=== PATIENT | female | born 1985 | race Caucasian/White ===

== ENCOUNTER → 2016-09-13 | Outpatient (CLI) | payer MEDICAID ==
--- NOTE | 2016-09-13 16:39 | REP ---
Obstetric sonography: History: Supervision of followup anatomy. Comparison study: 08/03/2016. Findings: Scanning through the gravid uterus demonstrates a viable single intrauterine gestation in a cephalic lie. motion is observed and heart rate is recorded at 144 beats per minute. An anterior placenta is seen grade 0 without evidence of previa or abruption. Amniotic fluid is subjectively normal. Closed cervical length is 4.0 cm. No extrauterine abnormality is observed. There has been appropriate interval growth. No anomaly is seen. The following anatomic structures are identified and felt to be sonographically unremarkable today: cranium, choroid plexus, cavum, cerebellum posterior fossa, face and profile, lungs, four-chamber heart with left and right ventricular outflow tract views, diaphragm, left-sided stomach, abdominal wall cord insertion, three-vessel umbilical cord, kidneys and bladder, spine, upper and lower extremities. BPD 6.8 cm = 27 weeks 3 days Head circumference 23.9 cm = 26 weeks 0 days Abdominal circumference 22.0 cm = 26 weeks 3 days Femur length 4.7 cm = 25 weeks 4 days Humeral length 4.5 cm = 26 weeks 5 days Cerebellar diameter 3.0 cm = 26 weeks 0 days HC/AC ratio normal 1.09, cephalic index normal 0.88 estimated weight 896 grams 1 pound 15 ounces 55th percentile for 25 weeks 5 days. IMPRESSION: Viable single intrauterine gestation at 25 weeks 6 days by today's composite sonographic criteria. Expected gestational age estimate based on prior sonography is 25 weeks 5 days. PATRICK by prior sonography 12/22/2016. No anomaly is seen. anatomic survey is felt to be complete. Signed by Ulysses Kent MD 09/14/2016 07:59 A
== END ==
LOC: M SMT 12:44
PROVIDERS: ATTEND Specialist
DX: Z34.82 Encounter for supervision of other normal pregnancy, second trimester (principal)

== ENCOUNTER → 2016-09-30 | Outpatient (CLI) | payer MEDICAID ==
[2016-09-30 13:08] LABS: BASO % 0.2 % (0.0-1.0); EOS # 0.1 K/mm3 (0.0-0.50); EOS % 1.3 % (0.0-3.0); LARGE UNSTAINED CELL # 0.1 K/mm3 (0.0-0.4); LARGE UNSTAINED CELL % 1.3 % (0.0-4.0); LYMPH # 2.3 K/mm3 (1.5-6.5); LYMPH % 26.9 % (24.0-44.0); MEAN CORPUSCULAR HEMOGLOBIN 31.7 pg (27.0-33.0); MEAN CORPUSCULAR VOLUME 96.3 fl (80.0-96.0); MONO # 0.4 K/mm3 (0.0-0.8); MONO % 4.7 % (0.0-5.0); NEUTROPHILS # 5.5 K/mm3 (1.8-7.7); NEUTROPHILS % 65.6 % (36.0-66.0); PLATELET COUNT, AUTOMATED 185 k/mm3 (150-450); RED CELL DISTRIBUTION WIDTH 12.3 % (11.5-14.5); WHITE BLOOD COUNT 8.4 K/mm3 (4.0-10.0)
== END ==
LOC: M SMT 10:29
PROVIDERS: ATTEND Specialist
DX: Z34.82 Encounter for supervision of other normal pregnancy, second trimester (principal)

== ENCOUNTER → 2016-11-24 | Outpatient (REF) | payer OTHER, MEDICAID | LOC: M LAB REF 17:01 | PROVIDERS: ATTEND Obstetrics & Gynecology | DX: Z34.83 Encounter for supervision of other normal pregnancy, third trimester (principal) ==

== ENCOUNTER 2016-12-17 17:51 | Inpatient (IN) | payer MEDICAID, OTHER ==
[~2016-12-17] VITALS: Ht 162.6 cm; Wt 85.0 kg
[2016-12-17] VITALS (19 sets, daily range): BP systolic 101–136; BP diastolic 58–103
[2016-12-17] MEDS ORDERED: PRENTAB9 PO (18:15)
[2016-12-17] MEDS ORDERED: LR 1,000 ML IV SCH (20:44)
[2016-12-17] MEDS ORDERED: LACTATED RINGER'S 1000 ML IV STA (20:44)
[2016-12-17] MEDS ORDERED: PROMETHAZINE INJ 25 MG/ML VIAL (J2550) IV ONE (20:45)
[2016-12-17] MEDS ORDERED: BUTORPHANOL 2 MG/ML INJ (J0595) IV ONE (20:45)
[2016-12-17] MEDS ORDERED: OXYTOCIN DRIP 30 UNITS in APPROPRIATE DILUENT 1 EA IV SCH (20:45)
[2016-12-17] MEDS ORDERED: FENTANYL 2MCG/ML ROPIVACAINE 0.2% IN 0.9% NACL 200ML IVBAG As Ordered ONE (21:19)
[2016-12-17 21:27] LABS: MEAN CORPUSCULAR HEMOGLOBIN 31.5 pg (27.0-33.0); MEAN CORPUSCULAR HGB CONC 33.7 g/dl (32.0-36.5); MEAN CORPUSCULAR VOLUME 93.3 fl (80.0-96.0); RED CELL DISTRIBUTION WIDTH 12.6 % (11.5-14.5); WHITE BLOOD COUNT 13.8 K/mm3 (4.0-10.0)
[2016-12-17] MEDS ORDERED: LACTATED RINGER'S 1000 ML IV PRN (22:30)
[2016-12-17] MEDS ORDERED: EPIDURAL/PCA KEYS XX PRN (22:30)
[2016-12-17] MEDS ORDERED: REFRIGERATOR IV KEYS XX PRN (22:30)
[2016-12-17] MEDS ORDERED: FENTANYL/ROPIVACAINE/NACL BAG 200 ML EPIDURAL SCH (22:30)
[2016-12-17] MEDS ORDERED: diphenhydrAMINE INJ 50MG/ML VIAL (J1200) IV PRN (22:30)
[2016-12-17] MEDS ORDERED: NALOXONE INJ 0.4 MG/1 ML VIAL (J2310) IV PRN (22:30)
[2016-12-17] MEDS ORDERED: EPIDURAL COMMENT XX SCH (22:30)
[2016-12-17] MEDS ORDERED: ONDANSETRON 4MG/2ML VIAL (J2405) IV PRN (22:30)
[2016-12-17] MEDS ORDERED: ePHEDrine SULFATE 25 MG/5 ML(5MG/ML) SYRINGE IV PRN (22:30)
[2016-12-18] VITALS (25 sets, daily range): BP systolic 87–140; BP diastolic 51–98
[2016-12-18] MEDS: LR 1,000 ML IV SCH ×2 (09:55→17:55)
[2016-12-18] MEDS ORDERED: OXYTOCIN DRIP 30 UNITS in APPROPRIATE DILUENT 1 EA IV SCH (09:55)
[2016-12-18] MEDS ORDERED: ONDANSETRON 4MG/2ML VIAL (J2405) IV PRN (10:00)
[2016-12-18] MEDS ORDERED: ACETAMINOPHEN 500 MG TAB PO PRN (10:00)
[2016-12-18] MEDS ORDERED: METHYLERGONOVINE MALEATE 0.2 MG TAB PO PRN (10:00)
[2016-12-18] MEDS ORDERED: MEASLES,MUMPS,RUBELLA VACCINE INJ (MMR-II) (90707) SC SCH (10:00)
[2016-12-18] MEDS ORDERED: PROMETHAZINE 25 MG TAB PO PRN (10:00)
[2016-12-18] MEDS ORDERED: RHOGAM 300 MCG (1500 IU) INJ (J2790) IM SCH (10:00)
[2016-12-18] MEDS ORDERED: DIBUCAINE 1% OINTMENT 30GM TOP PRN (10:00)
[2016-12-18] MEDS: IBUPROFEN 800 MG TAB PO PRN ×2 (10:41→20:11)
[2016-12-18] MEDS: DOCUSATE SODIUM 100 MG CAP PO PRN (20:33)
[2016-12-19 05:41] VITALS: BP 112/59
[2016-12-19] MEDS: IBUPROFEN 800 MG TAB PO PRN ×2 (10:02→20:16)
[2016-12-19] MEDS: PRENATAL VITAMIN TAB PO SCH (10:02)
[2016-12-19 18:00] VITALS: BP 126/89
[2016-12-19] MEDS: DOCUSATE SODIUM 100 MG CAP PO PRN (20:16)
[2016-12-20 06:00] VITALS: BP 122/75
[2016-12-20] MEDS: PRENATAL VITAMIN TAB PO SCH (08:03)
[2016-12-20] MEDS ORDERED: IBUP-1114 PO (08:56)
[2016-12-20] MEDS ORDERED: ACET50TA PO (08:56)
== END 2016-12-20 10:55 | disposition home or self-care (01) | DRG 560 ==
LOC: M LDO 17:51 → M LDI 20:34 → M OBS 12-18 12:36
PROVIDERS: ADMIT Obstetrics & Gynecology; ATTEND Obstetrics & Gynecology
PROC: 10E0XZZ Delivery of Products of Conception, External Approach (ICD-10-PCS; principal; 2016-12-18)
PROC: 0HQ9XZZ Repair Perineum Skin, External Approach (ICD-10-PCS; 2016-12-18)
DX: O70.0 First degree perineal laceration during delivery (principal); O69.82X0 Labor and delivery complicated by other cord entanglement, without compression, not applicable or unspecified; Z37.0 Single live birth; Z3A.39 39 weeks gestation of pregnancy

== ENCOUNTER 2017-03-14 20:16 | Emergency (ER) | payer OTHER ==
[~2017-03-14] VITALS: Ht 162.6 cm; Wt 75.7 kg
[~2017-03-14 20:16] MED LIST: ACET50TA PO; IBUP-1114 PO; PRENTAB9 PO
[2017-03-14 20:17] VITALS: BP 126/79
[2017-03-14] MEDS ORDERED: IBUPROFEN 800 MG TAB PO ONE (20:45)
[2017-03-14] MEDS ORDERED: AMOXICILLIN 500 MG CAP PO ONE (20:45)
[2017-03-14] MEDS ORDERED: AMOX500C PO (20:47)
== END 2017-03-14 21:01 | disposition home or self-care (01) ==
LOC: M ED 20:16
DX: H66.002 Acute suppurative otitis media without spontaneous rupture of ear drum, left ear (principal)

== ENCOUNTER → 2017-05-01 | Outpatient (REF) | payer OTHER ==
[~2017-05-01] MED LIST changes: +AMOX500C PO
== END ==
LOC: M SFHCPLAZ 09:39
PROVIDERS: ATTEND Nurse Practitioner Family
DX: Z00.00 Encounter for general adult medical examination without abnormal findings (principal); Z13.220 Encounter for screening for lipoid disorders

== ENCOUNTER → 2017-10-20 | Outpatient (CLI) | payer MEDICAID ==
[2017-10-20 14:02] LABS: BASO % 0.2 % (0.0-1.0); EOS # 0.1 10^3/uL (0.0-0.50); EOS % 1.4 % (0.0-3.0); HEMATOCRIT 39.8 % (36.0-47.0); HEMOGLOBIN 13.5 g/dl (12.0-16.0); IMMATURE GRANULOCYTE % 0.2 % (0-3.0); LYMPH # 2.7 10^3/uL (1.5-6.5); LYMPH % 32.4 % (24.0-44.0); MEAN CORPUSCULAR HEMOGLOBIN 31.3 pg (27.0-33.0); MEAN CORPUSCULAR HGB CONC 33.9 g/dl (32.0-36.5); MEAN CORPUSCULAR VOLUME 92.3 fl (80.0-96.0); MONO # 0.5 10^3/uL (0.0-0.8); MONO % 5.6 % (0.0-5.0); NEUTROPHILS # 5.1 10^3/uL (1.8-7.7); NEUTROPHILS % 60.2 % (36.0-66.0); PLATELET COUNT, AUTOMATED 219 10^3/uL (150-450); RED BLOOD COUNT 4.31 10^6/uL (4.00-5.40); RED CELL DISTRIBUTION WIDTH 12.5 % (11.5-14.5); WHITE BLOOD COUNT 8.5 10^3/uL (4.0-10.0)
[2017-10-20 14:37] LABS: HBsAg Prenatal NEGATIVE (NEGATIVE); RUBELLA IgG QUALITATIVE IMMUNE (IMMUNE)
[2017-10-20 15:06] LABS: HIV 1&2 SCREEN CENTAUR NEGATIVE (NEGATIVE)
[2017-10-20 16:07] LABS: CHLAMYDIA DNA AMPLIFICATION NEGATIVE (NEGATIVE); GC DNA AMPLIFICATION NEGATIVE (NEGATIVE)
== END ==
LOC: M SMT 11:05
DX: Z3A.09 9 weeks gestation of pregnancy (principal); Z34.81 Encounter for supervision of other normal pregnancy, first trimester
CPT/HCPCS: 86762

== ENCOUNTER → 2017-12-29 | Outpatient (CLI) | payer OTHER | LOC: M RAD 15:34 | DX: Z34.82 Encounter for supervision of other normal pregnancy, second trimester (principal) | CPT/HCPCS: 76811 ==

== ENCOUNTER → 2018-03-09 | Outpatient (CLI) | payer OTHER ==
[2018-03-09 11:53] LABS: BASO % 0.3 % (0.0-1.0); EOS # 0.2 10^3/uL (0.0-0.50); EOS % 1.8 % (0.0-3.0); HEMATOCRIT 34.5 % (36.0-47.0); HEMOGLOBIN 11.5 g/dl (12.0-15.5); IMMATURE GRANULOCYTE % 0.7 % (0-3.0); LYMPH # 2.7 10^3/uL (1.5-4.5); LYMPH % 27.5 % (24.0-44.0); MEAN CORPUSCULAR HEMOGLOBIN 32.1 pg (27.0-33.0); MEAN CORPUSCULAR HGB CONC 33.3 g/dl (32.0-36.5); MEAN CORPUSCULAR VOLUME 96.4 fl (80.0-96.0); MONO # 0.5 10^3/uL (0.0-0.8); MONO % 4.5 % (0.0-5.0); NEUTROPHILS # 6.5 10^3/uL (1.8-7.7); NEUTROPHILS % 65.2 % (36.0-66.0); PLATELET COUNT, AUTOMATED 195 10^3/uL (150-450); RED BLOOD COUNT 3.58 10^6/uL (4.00-5.40); RED CELL DISTRIBUTION WIDTH 12.9 % (11.5-14.5); WHITE BLOOD COUNT 9.9 10^3/uL (4.0-10.0)
[2018-03-09 12:26] LABS: GLUCOSE CHALLENGE TEST 1 HOUR 82 MG/DL (LESS THAN 140)
== END ==
LOC: M SMT 09:00
DX: Z36.89 Encounter for other specified antenatal screening (principal)
CPT/HCPCS: 82950

== ENCOUNTER → 2018-04-25 | Outpatient (REF) | payer OTHER, MEDICAID | LOC: M LAB REF 13:32 | DX: Z34.83 Encounter for supervision of other normal pregnancy, third trimester (principal) ==

== ENCOUNTER 2018-05-13 00:14 | Outpatient (CLI) | payer OTHER, MEDICAID | END 2018-05-13 01:24 | disposition home or self-care (01) | LOC: M LDO 00:14 | DX: O47.1 False labor at or after 37 completed weeks of gestation (principal); Z3A.38 38 weeks gestation of pregnancy | CPT/HCPCS: 59025 ==

== ENCOUNTER 2018-05-15 00:05 | Outpatient (CLI) | payer OTHER | END 2018-05-15 03:30 | disposition home or self-care (01) | LOC: M LDO 00:05 | DX: O47.1 False labor at or after 37 completed weeks of gestation (principal); Z3A.38 38 weeks gestation of pregnancy | CPT/HCPCS: 59025 ==

== ENCOUNTER 2018-05-20 03:45 | Inpatient (IN) | payer OTHER ==
[2018-05-20] MEDS: PROMETHAZINE INJ 25 MG/ML VIAL (J2550) IV (07:45)
[2018-05-20] MEDS: BUTORPHANOL 2 MG/ML INJ (J0595) IV (07:45)
[2018-05-20] MEDS ORDERED: OXYTOCIN 30 UNITS IN 0.9% NaCl 500ML IV BAG (J2590) As Ordered (08:02)
[2018-05-20 08:10] LABS: HEMOGLOBIN 13.2 g/dl (12.0-15.5); MEAN CORPUSCULAR HEMOGLOBIN 30.7 pg (27.0-33.0); MEAN CORPUSCULAR HGB CONC 33.8 g/dl (32.0-36.5); MEAN CORPUSCULAR VOLUME 90.7 fl (80.0-96.0); PLATELET COUNT, AUTOMATED 175 10^3/uL (150-450); RED CELL DISTRIBUTION WIDTH 13.5 % (11.5-14.5); WHITE BLOOD COUNT 12.7 10^3/uL (4.0-10.0)
[2018-05-20] MEDS: OXYTOCIN DRIP 30 UNITS in APPROPRIATE DILUENT 1 EA IV (08:20)
[2018-05-20 08:22] LABS: AMPHETAMINES URINE REFLEX NEGATIVE (NEGATIVE); BARBITURATES URINE REFLEX NEGATIVE (NEGATIVE); BENZODIAZEPINES URINE REFLEX NEGATIVE (NEGATIVE); CANNABINOIDS URINE REFLEX NEGATIVE (NEGATIVE); COCAINE METABOLITE URINE REFLE NEGATIVE (NEGATIVE); METHADONE URINE REFLEX NEGATIVE (NEGATIVE); OPIATES URINE REFLEX NEGATIVE (NEGATIVE); PHENCYCLIDINE URINE REFLEX NEGATIVE (NEGATIVE)
[2018-05-20] MEDS ORDERED: DOCUSATE SODIUM 100 MG CAP PO (09:15)
[2018-05-20] MEDS ORDERED: MOM 30ML SUSPENSION UDC PO (09:15)
[2018-05-20] MEDS ORDERED: DIBUCAINE 1% OINTMENT 30GM TOP (09:15)
[2018-05-20] MEDS ORDERED: METHYLERGONOVINE MALEATE 0.2 MG TAB PO (09:15)
[2018-05-20] MEDS: IBUPROFEN 800 MG TAB PO (09:57)
[2018-05-20] MEDS: CALCIUM CARBONATE 500 MG CHEW U/D PO (12:25)
[2018-05-21] MEDS: ACETAMINOPHEN 500 MG TAB PO (03:07)
[2018-05-21] MEDS: PRENATAL VITAMINS CHEWABLE TABLET PO (09:00)
[2018-05-21] MEDS: RHOGAM 300 MCG (1500 IU) INJ (J2790) IM (19:10)
[2018-05-21] MEDS: MEASLES,MUMPS,RUBELLA VACCINE INJ (MMR-II) (90707) SC (19:10)
[2018-05-22] MEDS: ANUSOL HC CREAM 30GM TOP (01:40)
[2018-05-22] MEDS: PRENATAL VITAMINS CHEWABLE TABLET PO ×2 (08:45→09:00)
== END 2018-05-22 10:45 | disposition home or self-care (01) | DRG 560 ==
LOC: M LDO 03:45 → M LDI 07:25 → M OBS 05-21 13:12
PROVIDERS: Obstetrics & Gynecology
PROC: 10E0XZZ Delivery of Products of Conception, External Approach (ICD-10-PCS; principal; 2018-05-20)
DX: O80 Encounter for full-term uncomplicated delivery (principal); Z37.0 Single live birth; Z3A.39 39 weeks gestation of pregnancy

== ENCOUNTER → 2019-02-03 | Outpatient (REF) | payer OTHER ==
[~2019-02-03] MED LIST changes: -ACET50TA PO; +COLA100C5 PO; +MAPA500T2 PO; +TUMS500C PO
== END ==
LOC: M LAB REF 12:46
PROVIDERS: ATTEND Physician Assistant Medical
DX: J02.9 Acute pharyngitis, unspecified (principal)

== ENCOUNTER → 2020-06-08 | Outpatient (REF) | payer OTHER | LOC: M SFHCWAGY 19:07 | PROVIDERS: ATTEND Obstetrics & Gynecology | DX: Z12.4 Encounter for screening for malignant neoplasm of cervix (principal) ==

== ENCOUNTER → 2020-06-08 | Outpatient (REF) | payer OTHER | LOC: M PLALAB 13:29 | PROVIDERS: ATTEND Obstetrics & Gynecology | DX: Z12.4 Encounter for screening for malignant neoplasm of cervix (principal) ==

== ENCOUNTER → 2020-11-25 | Outpatient (REF) | payer OTHER | LOC: M LAB REF 16:02 | PROVIDERS: ATTEND Nurse Practitioner Family | DX: R30.0 Dysuria (principal) ==

== ENCOUNTER → 2021-05-14 | Outpatient (CLI) | payer OTHER ==
[2021-05-14 15:38] LABS: BASO % 0.2 % (0.0-1.0); EOS # 0.1 10^3/uL (0.0-0.5); EOS % 1.5 % (0.0-3.0); HEMATOCRIT 39.6 % (36.0-47.0); HEMOGLOBIN 13.2 g/dl (12.0-15.5); LYMPH # 2.4 10^3/uL (1.5-5.0); LYMPH % 27.2 % (24.0-44.0); MEAN CORPUSCULAR HGB CONC 33.3 g/dl (32.0-36.5); MEAN CORPUSCULAR VOLUME 96.1 fl (80.0-96.0); MONO # 0.6 10^3/uL (0.0-0.8); MONO % 6.8 % (2.0-8.0); NEUTROPHILS # 5.7 10^3/uL (1.5-8.5); NEUTROPHILS % 63.9 % (36.0-66.0); PLATELET COUNT, AUTOMATED 225 10^3/uL (150-450); RED BLOOD COUNT 4.12 10^6/uL (4.00-5.40); WHITE BLOOD COUNT 8.9 10^3/uL (4.0-10.0)
[2021-05-14 17:16] LABS: GC DNA AMPLIFICATION NEGATIVE (NEGATIVE)
== END ==
LOC: M PLALAB 13:35
PROVIDERS: ATTEND Advanced Practice Midwife
DX: Z34.91 Encounter for supervision of normal pregnancy, unspecified, first trimester (principal); Z3A.00 Weeks of gestation of pregnancy not specified

== ENCOUNTER → 2021-08-03 | Outpatient (CLI) | payer OTHER | LOC: M WHC 12:20 | PROVIDERS: ATTEND Specialist | DX: Z34.82 Encounter for supervision of other normal pregnancy, second trimester (principal); Z36.89 Encounter for other specified antenatal screening; Z3A.20 20 weeks gestation of pregnancy ==

== ENCOUNTER → 2021-09-02 | Outpatient (CLI) | payer OTHER ==
--- NOTE | 2021-09-02 09:22 | REP ---
INDICATION: F/U COMPARISON: 08/03/2021 TECHNIQUE: Transabdominal obstetrical ultrasound with color Doppler evaluation. FINDINGS: Examination demonstrates a single live intrauterine in breech presentation. motion is identified by technologist. Placenta is noted anterior/fundal and grade 1 without evidence for placenta previa or abruption. Amniotic fluid volume is normal. Cervix measures 4.2 cm in length and appears closed.. Selected gestational age: 24 weeks 6 days with PATRICK 12/17/2021. Gestational age by current measurements 26 weeks 0 days with PATRICK 12/09/2021. FHR equals 130 beats per minute. Estimated weight 857 grams (82ndpercentile). Anatomical assessment demonstrates normal structures including four-chamber heart/ventricular outflow tracts. Small focus of echogenicity in the left cardiac ventricle most consistent with prominent chordae tendineae. IMPRESSION: Single live intrauterine in breech presentation demonstrating appropriate estimated weight and growth. In conjunction with prior examination anatomical assessment is essentially complete and normal. As above. <Electronically signed by David Oconnell > 09/02/21 0923
--- NOTE | 2021-09-02 09:24 | REP ---
INDICATION: PAIN IN LEG COMPARISON: None. TECHNIQUE: Nicole scale and color Doppler evaluation using linear high frequency transducer. FINDINGS: Ultrasound examination of the right lower extremity deep venous structures from the common femoral vein through the popliteal vein demonstrates normal compressibility, flow and wave patterns in response to respiration and augmentation. Evaluation of the calf demonstrates patent posterior tibial and peroneal veins. There is no evidence for deep venous thrombosis. IMPRESSION: No evidence for deep venous thrombosis. <Electronically signed by David Oconnell > 09/02/21 [id number]
== END ==
LOC: M WHC 08:01
PROVIDERS: ATTEND Obstetrics & Gynecology
DX: Z36.2 Encounter for other antenatal screening follow-up (principal); Z3A.24 24 weeks gestation of pregnancy; O32.1XX0 Maternal care for breech presentation, not applicable or unspecified; M79.604 Pain in right leg; O26.892 Other specified pregnancy related conditions, second trimester

== ENCOUNTER → 2021-09-16 | Outpatient (CLI) | payer OTHER ==
[2021-09-16 13:56] LABS: HEMATOCRIT 36.8 % (36.0-47.0); HEMOGLOBIN 12.2 g/dl (12.0-15.5); MEAN CORPUSCULAR HEMOGLOBIN 32.3 pg (27.0-33.0); MEAN CORPUSCULAR HGB CONC 33.2 g/dl (32.0-36.5); MEAN CORPUSCULAR VOLUME 97.4 fl (80.0-96.0); PLATELET COUNT, AUTOMATED 185 10^3/uL (150-450); RED BLOOD COUNT 3.78 10^6/uL (4.00-5.40); WHITE BLOOD COUNT 13.1 10^3/uL (4.0-10.0)
== END ==
LOC: M PLALAB 08:37
PROVIDERS: ATTEND Obstetrics & Gynecology
DX: Z36.89 Encounter for other specified antenatal screening (principal); Z3A.21 21 weeks gestation of pregnancy

== ENCOUNTER → 2021-11-25 | Outpatient (REF) | payer OTHER | LOC: M SFHCWAGY 13:05 | PROVIDERS: ATTEND Obstetrics & Gynecology | DX: Z36.85 Encounter for antenatal screening for Streptococcus B (principal) ==

== ENCOUNTER → 2023-08-02 | Outpatient (REF) | payer OTHER ==
[~2023-08-02] MED LIST changes: +ACET-683 PO; +IBUP-1022 PO
== END ==
LOC: M PLALAB 14:40
PROVIDERS: ATTEND Nurse Practitioner Family
DX: Z12.4 Encounter for screening for malignant neoplasm of cervix (principal)

== ENCOUNTER → 2023-08-02 | Outpatient (CLI) | payer OTHER ==
[2023-08-02 14:02] LABS: BASO % 0.4 % (0.0-1.0); EOS # 0.1 10^3/uL (0.0-0.5); EOS % 1.8 % (0.0-3.0); HEMATOCRIT 41.4 % (36.0-47.0); HEMOGLOBIN 13.5 g/dl (12.0-15.5); LYMPH # 2.2 10^3/uL (1.5-5.0); LYMPH % 30.6 % (24.0-44.0); MEAN CORPUSCULAR HEMOGLOBIN 31.8 pg (27.0-33.0); MEAN CORPUSCULAR HGB CONC 32.6 g/dl (32.0-36.5); MEAN CORPUSCULAR VOLUME 97.4 fl (80.0-96.0); MONO # 0.3 10^3/uL (0.0-0.8); MONO % 4.1 % (2.0-8.0); NEUTROPHILS # 4.5 10^3/uL (1.5-8.5); PLATELET COUNT, AUTOMATED 264 10^3/uL (150-450); RED BLOOD COUNT 4.25 10^6/uL (4.00-5.40); WHITE BLOOD COUNT 7.1 10^3/uL (4.0-10.0)
[2023-08-02 14:19] LABS: HEMOGLOBIN A1c 4.7 % (4.0-6.0)
[2023-08-02 14:27] LABS: ALBUMIN 3.9 G/DL (3.2-5.2); ALKALINE PHOSPHATASE 65 U/L (46-116); ALT/SGPT 34 U/L (7.0-40); AST/SGOT 27 U/L (<34); BILIRUBIN,TOTAL 0.3 MG/DL (0.3-1.2); BLOOD UREA NITROGEN 12 MG/DL (9-23); CALCIUM LEVEL 9.6 MG/DL (8.5-10.1); CARBON DIOXIDE LEVEL 25 MMOL/L (20-31); CHLORIDE LEVEL 106 MMOL/L (98-107); CREATININE FOR GFR 0.65 MG/DL (0.55-1.30); GLOMERULAR FILTRATION RATE > 60.0 (>60); GLUCOSE, FASTING 75 MG/DL (60-100); SODIUM LEVEL 141 MMOL/L (136-145); TOTAL PROTEIN 7.4 G/DL (5.7-8.2)
[2023-08-02 14:31] LABS: FREE T4 1.07 NG/DL (0.89-1.76)
[2023-08-02 14:32] LABS: PROLACTIN 6.01 NG/ML
== END ==
LOC: M PLALAB 10:54
PROVIDERS: ATTEND Nurse Practitioner Family
DX: N92.0 Excessive and frequent menstruation with regular cycle (principal)

== ENCOUNTER → 2024-09-25 | Outpatient (CLI) | payer OTHER ==
[2024-09-25 16:33] LABS: HEMOGLOBIN A1c 4.9 % (4.0-6.0)
[2024-09-25 17:00] LABS: FREE T4 1.17 NG/DL (0.89-1.76)
[2024-09-25 17:01] LABS: THYROID STIMULATING HORMONE 1.431 uIU/ML (0.55-4.78)
== END ==
LOC: M PLALAB 11:29
PROVIDERS: ATTEND Nurse Practitioner Family
DX: R63.5 Abnormal weight gain (principal)

== ENCOUNTER → 2025-04-10 | Outpatient (REF) | payer OTHER ==
[2025-04-10 13:34] LABS: APPEARANCE, URINE CLEAR (CLEAR); BACTERIA, URINE AUTO NEGATIVE (NEGATIVE); BILIRUBIN, URINE AUTO NEGATIVE (NEGATIVE); BLOOD, URINE BLOOD 2+ (NEGATIVE); GLUCOSE, URINE (UA) AUTO NEGATIVE (NEGATIVE); KETONE, URINE AUTO NEGATIVE (NEGATIVE); LEUKOCYTE ESTERASE, URINE AUTO NEGATIVE (NEGATIVE); NITRITE, URINE AUTO NEGATIVE (NEGATIVE); PROTEIN, URINE AUTO NEGATIVE (NEGATIVE); RBC, URINE AUTO 0 /HPF (0-3); SPECIFIC GRAVITY URINE AUTO 1.003 (1.002-1.035); SQUAMOUS EPITHELIAL CELL UR AU 1 /HPF (0-6); UROBILINOGEN, URINE AUTO 0.2 mg/dL (0.0-2.0); WBC, URINE AUTO 0 /HPF (0-3)
== END ==
LOC: M SFHCWAGY 12:49
PROVIDERS: ATTEND Nurse Practitioner Family
DX: R30.0 Dysuria (principal)

== ENCOUNTER 2025-06-14 23:41 | Emergency (ER) | payer OTHER ==
[~2025-06-14] VITALS: Ht 172.7 cm; Wt 80.6 kg
[~2025-06-14 23:41] MED LIST changes: -IBUP-1022 PO; +IBUP600T42 PO
[2025-06-15] MEDS: NS (Normal Saline) 0.9% 1,000 ML IV SCH (01:46)
[2025-06-15] MEDS: ONDANSETRON 4MG 2ML VIAL IV ONE (01:50)
[2025-06-15] MEDS: KETAMINE HCL 200 MG/20 ML VIAL IV ONE (03:47)
[2025-06-15 05:30] VITALS: BP 112/61; TEMP 97.2; O2SAT 100
== END 2025-06-15 05:32 | disposition home or self-care (01) ==
LOC: M ED 23:41
DX: S53.125A Posterior dislocation of left ulnohumeral joint, initial encounter (principal); M25.422 Effusion, left elbow; W01.198A Fall on same level from slipping, tripping and stumbling with subsequent striking against other object, initial encounter; Y92.002 Bathroom of unspecified non-institutional (private) residence as the place of occurrence of the external cause; Y93.89 Activity, other specified; Y99.9 Unspecified external cause status; Z79.1 Long term (current) use of non-steroidal anti-inflammatories (NSAID); Z79.899 Other long term (current) drug therapy
CPT/HCPCS: 24605; 73070; 73080; 93041; 94760; 96361; 96374; 96375; 99285; J2405; J3010

== ENCOUNTER 2025-08-15 08:47 | Day surgery (SDC) | payer OTHER ==
[~2025-08-15] VITALS: Ht 162.6 cm; Wt 81.0 kg
[2025-08-15 09:20] LABS: PLATELET COUNT, AUTOMATED 233 10^3/uL (150-450)
[2025-08-15] MEDS ORDERED: LR 1,000 ML IV SCH ×2 (10:55→12:35)
[2025-08-15] MEDS ORDERED: HYDROmorphone HCL 2 MG/ML 1 ML VIAL As Ordered ONE (11:22)
[2025-08-15] MEDS ORDERED: MIDAZOLAM INJ 2 MG/2 ML VIAL As Ordered ONE (11:23)
[2025-08-15] MEDS ORDERED: LIDOCAINE 2% 100 MG/5 ML SDV (FOR ANES.) As Ordered ONE (11:23)
[2025-08-15] MEDS ORDERED: dexAMETHasone 4 MG/ML 1 ML VIAL As Ordered ONE (11:24)
[2025-08-15] MEDS ORDERED: ONDANSETRON 4MG/2ML VIAL As Ordered ONE (11:24)
[2025-08-15] MEDS ORDERED: ROCURONIUM BROMIDE 50MG/5ML VIAL As Ordered ONE (11:24)
[2025-08-15] MEDS ORDERED: SUGAMMADEX SODIUM 200 MG/2 ML VIAL As Ordered ONE (11:31)
[2025-08-15] MEDS ORDERED: ACETAMINOPHEN 1000MG/100ML IV BAG As Ordered ONE (11:31)
[2025-08-15] MEDS ORDERED: KETOROLAC 30 MG/ML 1 ML VIAL As Ordered ONE (11:33)
[2025-08-15] MEDS ORDERED: HYDROMORPHONE HCL 0.5 MG/0.5 ML SYRINGE IV PRN (12:35)
[2025-08-15] MEDS ORDERED: IBUP600T42 PO (12:44)
[2025-08-15] MEDS ORDERED: OXYC1TAB23 PO (12:47)
[2025-08-15] MEDS: ONDANSETRON 4MG/2ML VIAL IV PRN (13:45)
[2025-08-15] MEDS: diphenhydrAMINE 50 MG/ML VIAL IV PRN (15:28)
[2025-08-15 16:01] VITALS: BP 135/79; TEMP 97.7; O2SAT 100
== END 2025-08-15 16:32 | disposition home or self-care (01) ==
LOC: M SDC 08:47
PROVIDERS: ATTEND Specialist
DX: Z30.2 Encounter for sterilization (principal); F17.200 Nicotine dependence, unspecified, uncomplicated
CPT/HCPCS: 36415; 58661; 81025; 85027; 88302; J0131; J0665; J1100; J1171; J1200; J1885; J2250; J2405; J2765; J3010